=== PATIENT | female | born 1955 | race Caucasian/White ===

== ENCOUNTER → 2018-08-29 | Outpatient (CLI) | payer BC ==
[~2018-08-29] MED LIST: THYR15TA6 PO
--- NOTE | 2018-08-30 17:11 | RADIOLOGY IMAGING REPORT ---
FACILITY: [facility] - [place] PATIENT NAME: ALEENA VILLATORO : [id number] MR: [id number] V: [id number] EXAM DATE: [id number] ORDERING PHYSICIAN: DONNELL RAMOS TECHNOLOGIST: Aruna Mendez PROCEDURE:BILATERAL DIGITAL SCREENING MAMMOGRAM WITH CAD ASSISTED INTERPRETATION & 3D TOMOSYNTHESIS COMPARISON:Prior mammograms 07/30/12. INDICATIONS:SCREENING FINDINGS: The breasts are heterogeneously dense which can obscure small masses. The parenchymal pattern has remained stable allowing for difference in mammographic technique & patient positioning. DIAGNOSTIC CATEGORY 1--NEGATIVE. RECOMMENDATIONS: ROUTINE MAMMOGRAM AND CLINICAL EVALUATION. IMPRESSION: BIRADS 1: Negative. No significant abnormality is seen. Dictated by: Mickie Nation M.D. on 08/29/2018 at 11:35 Transcribed by: [place] on 08/29/2018 at 11:43 Approved by: Mickie Nation M.D. on 08/30/2018 at 17:10 [facility]
== END ==
LOC: MAMO 08:25
PROVIDERS: ATTEND Physician Assistant
DX: Z12.31 Encounter for screening mammogram for malignant neoplasm of breast (principal)
CPT/HCPCS: 77063; 77067